=== PATIENT | male | born 1960 | race Caucasian/White ===

== ENCOUNTER 2023-08-28 12:58 | Emergency (ER) | payer OTHER, SELFPAY ==
[2023-08-28 13:09] VITALS: BP 135/91
[2023-08-28] MEDS: TORADOL 30 MG IM (16:32)
[2023-08-28 17:03] LABS: Urine Albumin Negative (Neg - Trace); Urine Bilirubin Negative (Negative); Urine Character Clear (Clear); Urine Color Yellow; Urine Glucose Negative (Negative); Urine Ketone Negative (Negative); Urine Leukocyte Negative (Negative); Urine Nitrite Negative (Negative); Urine Occult Blood Negative (Negative); Urine Urobilinogen Negative (Neg - 1+)
--- NOTE | 2023-08-28 17:10 | ED.GENMED ---
History of Present Illness
General
Chief Complaint: Musculo-Skeletal Complaint
Source: patient and spouse
Exam Limitations: none
Time Seen by Provider: 08/28/23 15:37
Nursing documentation reviewed up to this point in time: agreed with
Travel History
Have you had any contact with someone who has COVID-19?: No
Do you have any symptoms of coronavirus? Fever > 100 degrees, chills, cough, shortness of breath, sore throat, loss of taste or smell, muscle aches, or headache?: No
History of Present Illness
History of Present Illness:
63-year-old male with past medical history of GERD hypertension presenting to the emergency department today with concerns of right low back discomfort over the past 5 days that occurred abruptly when leaning over to feed one of his dogs. [place]
immediate sharp pain and then spasm-like pain thereafter was seen at an urgent care 4 days ago treated with muscle relaxer steroid and Tylenol he has not seen significant improvement since. Denies any change in bowel or bladder function denies
numbness or weakness denies urinary changes
Review of Systems
Review of Systems
Allergies reviewed?: Yes
All Other Systems: ROS reviewed and negative except as documented in HPI and ROS
Phy Exam
Physical Exam
Physical Exam:
GENERAL: Alert , in no apparent distress
EYE: pupils equal and reactive
NECK: Supple, no significant adenopathy.
ENT: o/p clr, mmm.
CARDIAC: Regular rate and rhythm .
LUNGS: Clear breath sounds bilaterally, no acute respiratory distress, no wheezes/rales/rhonchi
ABDOMEN: Soft, without focal tenderness, no r/g, no cvat
NEUROLOGICAL: Alert and oriented, no focal neuro deficits
SKIN: Warm and dry, skin intact.
MUSCULOSKELETAL: No edema, well perfused.
PSYCH: Normal and appropriate interaction.
Course
Orders/Labs/Results
Orders:
Orders
08/28/23 16:05
CT Abd/pel Without Iv Or Oral Urgent
Comment:
Reason For Exam: right flank pain
Ketorolac [Toradol] 30 mg IM NOW STA
08/28/23 16:43
Urinalysis Reflex To Culture Urgent
Date Specimen was Collected: 08/28/23
Time Specimen was Collected: 16:41
Vital Signs
Initial and Last Documented VS:
Initial Vital Signs
Temp Pulse Resp BP Pulse Ox
98 F 68 18 135/91 97
08/28/23 13:09 08/28/23 13:09 08/28/23 13:09 08/28/23 13:09 08/28/23 13:09
Last Documented Vital Signs
Temp Pulse Resp BP Pulse Ox
98 F 68 18 142/90 97
08/28/23 13:09 08/28/23 13:09 08/28/23 13:09 08/28/23 17:35 08/28/23 13:09
MDM/Problems Addressed
MDM/Problems Addressed:
63-year-old male presenting to the emergency department today with concerns of right low back discomfort that started abruptly 5 days ago when leaning over to feed his dog. Denies any numbness weakness change in bowel or bladder function. No red
flag symptoms of low back pain. Signs to be consistent with likely mechanical pain. Patient does have good range of motion and is moving freely concerning this there was concern of potential referred pain. CT scan was performed that did not show
any intra-abdominal pathology. It is most consistent with mechanical back discomfort. Patient was given an NSAID. Patient did have improvement of symptoms. Otherwise patient appears stable for discharge. Patient no distress will follow-up with
the back doctor return precautions given.
*Critical Care Note
Total Time (30-74mins, 75-104mins- exclusive of procedures): Not Applicable
ED Attending Note
-
Portions of this chart may have been created with voice recognition software.� Occasional wrong word or��sound alike� substitutions may have occurred due to the inherent limitations of voice recognition software.
Discharge Plan
Departure
Patient Disposition: Home (Routine Discharge)
Date of Disposition: 08/28/23
Time of Disposition: 18:07
Patient with high blood pressure during this ER visit?: No
Condition: Good
Covid-19: Not Applicable
Discharge Problem:
Back pain
Instructions: Back Pain
Prescriptions:
New
ibuprofen 600 mg tablet
600 mg PO TID 3 Days Qty: 9 0RF
Referrals:
Reji Arteaga MD [Active] - Follow up in 5-7 days
Harshil Peacock MD [Family Provider] -
Ryan Carreno MD [Non-Admitting Privileges] - Follow up in 5-7 days
Stand Alone Forms: Return to Work
Activity Restrictions/Additional Instructions:
You came to the emergency department today with concerns of low back pain.. Reassuring evaluation and normal CT scan. This is likely mechanical back pain. Please take the prescribed indication and follow closely with the back doctor for ongoing
symptoms. Return to the emergency department any worsening, new or concerning symptoms.
Interventions
Interventions:
*Risk Screen - Suicide Last Done: 08/28/23 13:09
*General Assessment Last Done: 08/28/23 13:09
*Neglect/Abuse Screening Last Done: 08/28/23 13:09
*Nursing Disposition Last Done: 08/28/23 17:35
ED-Musculoskeletal Assessment Last Done: 08/28/23 15:40
[2023-08-28 17:35] VITALS: BP 142/90
== END 2023-08-28 17:35 | disposition home or self-care (01) ==
LOC: EMR 12:58
PROVIDERS: Physician Assistant; EMERGENCY PHYSICIAN Emergency Medicine; FAMILY PHYSICIAN Family Medicine
DX: M54.50 Low back pain, unspecified (principal)
CPT/HCPCS: 99284; 96372; 74176; 81003

== ENCOUNTER 2024-04-04 10:03 | Emergency (ER) | payer OTHER, SELFPAY ==
[2024-04-04 10:09] VITALS: BP 158/97
--- NOTE | 2024-04-04 11:19 | ED.MUSCINJ ---
HPI-Injury
General
Chief Complaint: Musculo-Skeletal Complaint
Source: patient and spouse
Exam Limitations: none
Time Seen by Provider: 04/04/24 11:03
Nursing documentation reviewed up to this point in time: agreed with
History of Present Illness-Injury
Is this injury a work related problem?: No
Is pt an associate of [facility]/[place]?: No
Initial Injury comments:
64 yo male presents to the emergency department c/o right knee pain after twisting it yesterday. He is having increased swelling and pain. He has had knee pain for several weeks, but it got worse after he twisted it.
Past History
Past History
ED Past Medical History: HTN
ED Past Surgical History: Orthopedic (Left hand surgery by Dr. Ashby), Urological (Vasectomy) and Other (Hernia repair)
Social History
Tobacco: Non-smoker
Alcohol: None
Drug: None
Review of Systems
Review of Systems
Allergies reviewed?: Yes
All Other Systems: Not applicable
Constitutional: Reports no symptoms
EENT: Reports no symptoms
Respiratory: Reports no symptoms
Cardiac: Reports no symptoms
ABD/GI: Reports no symptoms
: Reports no symptoms
Musculoskeletal: Reports joint pain
Neurological: Reports no symptoms
Endocrine: Reports no symptoms
Hematologic/Lymphatic: Reports no symptoms
Psychiatric: Reports no symptoms
Musculoskeletal Injury Exam
Musculoskeletal Injury Exam
Right Knee:
Pain with Movement?: Mild
Tender to palpation?: None
Soft tissue swelling?: Mild
External deformity and angulation?: None
Joint effusion?: Mild
Contusion?: None
Hematoma-local bleeding into tissue?: None
Strain- Sprain- Tear (Connective tissue injury)?: None
Crepitus with movement?: No
Joint instability?: No
Malalignment/deformity?: No
Range of motion: Full
Distal skin color and temperature: normal-warm & good color
Capillary Refill: normal
Normal distal neurovascular exam?: Yes
Peripheral Pulses: femoral (left): 4+, femoral (right): 4+, popliteal (left): 4+, popliteal (right): 4+, posterior tibial (left): 4+, posterior tibial (right): 4+, dorsalis pedis (left): 4+ and dorsalis pedis (right): 4+
Phy Exam
Physical Exam
Physical Exam:
No acute distress, hypertensive
Injury Course
Orders/Labs/Results
Orders:
Orders
04/04/24 10:05
Knee, Right 4 or More Views [CR Knee- Right 4 Or More View*] Urgent
Comment:
Reason For Exam: pain
04/04/24 11:18
Knee Immobilizer Right-Treatme ONCE
Acetaminophen [Tylenol] 650 mg PO NOW STA
MDM/Problems Addressed
Differential Diagnosis Includes:
DVT, ligament tear, knee sprain
MDM/Problems Addressed:
64-year-old male with right knee sprain, no signs of ligament tear or significant effusion. Stable for discharge, knee immobilizer placed. Follow-up with Dr. Ashby.
Chronic conditions affecting care: HTN
*Radiology
Radiology exam reviewed: radiology read reviewed (Right knee x-ray shows small joint effusion, no fracture or dislocation)
*Pulse Oximetry
Patient hypoxic: no
*Medical Billing Specialist Interpretation
Rate: Medical Billing Specialist- N/A
*Critical Care Note
Total Time (30-74mins, 75-104mins- exclusive of procedures): Not Applicable
Patient Management
Social determinants of health affecting care: Living situation
Escalation/DeEscalation of care consider admission/obs:
admit not indicated
ED Attending Note
-
Portions of this chart may have been created with voice recognition software.� Occasional wrong word or��sound alike� substitutions may have occurred due to the inherent limitations of voice recognition software.
Discharge Plan
Departure
Patient Disposition: Home (Routine Discharge)
Date of Disposition: 04/04/24
Time of Disposition: 11:22
Patient with high blood pressure during this ER visit?: Yes
Condition: Good
Discharge Problem:
Right knee sprain
Instructions: Knee Sprain (DC), BLOOD PRESSURE
Prescriptions:
No Action
ibuprofen 600 mg tablet
600 mg PO TID 3 Days Qty: 9 0RF
Referrals:
Harshil Ashby MD [Active] - Call in 1-3 days for appt
Harshil Peacock MD [Family Provider] -
Stand Alone Forms: Return to Work
Interventions
Interventions:
*Risk Screen - Suicide Last Done: 04/04/24 10:09
*General Assessment Last Done: 04/04/24 10:59
*Neglect/Abuse Screening Last Done: 04/04/24 10:09
*ED COVID-19 Vaccine History Last Done: 04/04/24 10:59
ED-Musculoskeletal Assessment Last Done: 04/04/24 11:00
Discharge Date and Time
Print Language: TAJIK
[2024-04-04 11:40] VITALS: BP 151/88
[2024-04-04] MEDS: TYLENOL 650 MG PO (11:41)
== END 2024-04-04 11:42 | disposition home or self-care (01) ==
LOC: EMR 10:03
PROVIDERS: EMERGENCY PHYSICIAN Emergency Medicine; FAMILY PHYSICIAN Family Medicine
DX: S83.91XA Sprain of unspecified site of right knee, initial encounter (principal); M25.461 Effusion, right knee; X50.1XXA Overexertion from prolonged static or awkward postures, initial encounter; I10 Essential (primary) hypertension; K21.9 Gastro-esophageal reflux disease without esophagitis
CPT/HCPCS: 99283; 29505; 73564

== ENCOUNTER 2024-05-05 07:25 | Emergency (ER) | payer OTHER, SELFPAY ==
[2024-05-05 07:26] VITALS: BP 165/110
[2024-05-05 07:45] VITALS: BMI 27.3
--- NOTE | 2024-05-05 07:47 | ED.GENMED ---
History of Present Illness
General
Chief Complaint: Back Pain
Source: patient
Time Seen by Provider: 05/05/24 07:30
History of Present Illness
History of Present Illness:
64yoM with a history of hypertension and GERD presenting with his for evaluation of low back pain. He was in the ED for several hours 2 days ago with his . He started to feel a 'twinge' in his left lower back while sitting in the chair. He
started having worsening pain yesterday while at work. 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 Pain is worse with movement. Pain is located in the left lower back and radiates down into the buttock and the anterior
thigh. He has taken Tylenol without much improvement. He denies any fevers, chills, abdominal pain, dysuria, incontinence, saddle anesthesia. No paresthesias or weakness of the lower extremities. No prior history of back surgeries. He was seen in
the ED on 08/28/23 for back pain and pain improved with NSAIDs.
Past History
Past History
ED Past Medical History: HTN
ED Past Surgical History: Orthopedic (Left hand surgery by Dr. Ashby), Urological (Vasectomy) and Other (Hernia repair)
Social History
Tobacco: Non-smoker
Alcohol: None
Drug: None
Phy Exam
General Physical Exam
General Presentation: well appearing and no apparent distress
General age: appears stated age
General Skin: warm and dry
General Habitus: normal
General Mental: alert
ENT Exam
ENT Exam: normocephalic
Neurological Exam
Neurological Exam: alert and other (5/5 strength and gross sensation intact in bilateral lower extremities. 2+ patellar reflexes bilaterally. )
[place] Coma Scale
Eye Opening: Spontaneous
Verbal Response: Oriented
Motor Response: Obeys Commands
GCS Total Score: 15
Musculoskeletal Exam
Musculoskeletal Exam: other (No tenderness to palpation of lumbar region. Pain elicited with trunk flexion. No skin changes. )
Skin Exam
Skin Exam: normal color and warm/dry
Psychiatric Exam
Psychiatric Exam: normal mood/affect
Course
Orders/Labs/Results
Orders:
Orders
05/05/24 07:46
Ketorolac [Toradol] 30 mg IM NOW STA
Lidocaine [Lidocaine 4% Patch] 1 patch TOPICAL ONCE ONE
Apply Lidocaine patch(s) to:: L lower back
CR Lumbar Spine Comp Min 4 Vw* Urgent
Comment:
Reason For Exam: Low back pain
Vital Signs
Initial and Last Documented VS:
Initial Vital Signs
Temp Pulse Resp BP Pulse Ox
98.8 F 80 16 165/110 98
05/05/24 07:26 05/05/24 07:26 05/05/24 07:26 05/05/24 07:26 05/05/24 07:26
Last Documented Vital Signs
Temp Pulse Resp BP Pulse Ox
98.8 F 80 16 143/105 98
05/05/24 07:26 05/05/24 07:26 05/05/24 07:26 05/05/24 09:35 05/05/24 07:26
MDM/Problems Addressed
Differential Diagnosis Includes:
64yoM here with L lower back pain x 2 days. Started after sitting in a chair for several hours. Worse with movement. No red flags in history including no fevers, saddle anesthesia, incontinence. He is hypertensive with otherwise normal vital signs.
Back pain elicited with trunk flexion. Lower extremities are neurovascularly intact. Differential diagnosis includes but is not limited to: sciatica, lumbar radiculopathy, strain
Initial ED plan: Check lumbar x-rays. IM Toradol and lidocaine patch for pain.
*Critical Care Note
Total Time (30-74mins, 75-104mins- exclusive of procedures): Not Applicable
Update Note
Update Note:
Imaging shows degenerative changes without acute osseous abnormality. Pain improved with Toradol. No indication for admission. Will trial course of prednisone. He also is requesting a prescription for ibuprofen which was provided. Supportive care
discussed including heat and topical lidocaine patches. Advised f/u with PCP and orthopedics. He was also given contact information for pain management. ED return precautions discussed. He was discharged in stable condition.
ED Attending Note
-
Portions of this chart may have been created with voice recognition software.� Occasional wrong word or��sound alike� substitutions may have occurred due to the inherent limitations of voice recognition software.
Discharge Plan
Departure
Patient Disposition: Home (Routine Discharge)
Date of Disposition: 05/05/24
Time of Disposition: 09:27
Patient with high blood pressure during this ER visit?: Yes
Discharge Problem:
Low back pain radiating to left leg
Instructions: Low Back Pain (DC)
Prescriptions:
New
prednisone 20 mg tablet
40 mg PO DAILY 5 Days Qty: 10 0RF
ibuprofen 600 mg tablet
600 mg PO Q6H PRN (Reason: Pain) Qty: 30 0RF
No Action
ibuprofen 600 mg tablet
600 mg PO TID 3 Days Qty: 9 0RF
Referrals:
Reji Arteaga MD [Active] -
Harshil Peacock MD [Family Provider] -
Cisco Pacheco MD [Active] -
Stand Alone Forms: Return to Work
Activity Restrictions/Additional Instructions:
Take prednisone as prescribed. Apply heat to affected area. Take Tylenol 650mg and ibuprofen 600mg every 6 hours as needed for pain. Use lidocaine patches daily (12 hours on, 12 hours off).
Please follow-up with your family doctor and orthopedics. Return to the ER with any new or worsening symptoms.
Interventions
Interventions:
*Risk Screen - Suicide Last Done: 05/05/24 07:26
*General Assessment Last Done: 05/05/24 07:26
*Neglect/Abuse Screening Last Done: 05/05/24 07:26
ED- Fall Risk Assessment Last Done: 05/05/24 08:07
*ED COVID-19 Vaccine History Last Done: 05/05/24 07:26
*Nursing Disposition Last Done: 05/05/24 09:45
ED-Musculoskeletal Assessment Last Done: 05/05/24 07:45
Discharge Date and Time
Discharge Date/Time: 05/05/24 09:45
Print Language: BRAZILIAN
[2024-05-05] MEDS: TORADOL 30 MG IM (08:00)
[2024-05-05] MEDS: LIDOCAINE 4% PATCH 1 PATCH TOPICAL (08:00)
[2024-05-05 08:45] VITALS: BP 171/119
[2024-05-05 09:35] VITALS: BP 143/105
== END 2024-05-05 09:45 | disposition home or self-care (01) ==
LOC: EMR 07:25
PROVIDERS: EMERGENCY PHYSICIAN Emergency Medicine; FAMILY PHYSICIAN Family Medicine
DX: M54.50 Low back pain, unspecified (principal); M79.605 Pain in left leg; I10 Essential (primary) hypertension; K21.9 Gastro-esophageal reflux disease without esophagitis
CPT/HCPCS: 96372; 99284; 72110

== ENCOUNTER 2024-05-12 07:23 | Emergency (ER) | payer OTHER, SELFPAY ==
[2024-05-12 07:24] VITALS: BP 170/106
[2024-05-12 08:02] VITALS: BMI 27.6
[2024-05-12 08:31] VITALS: BP 164/110
--- NOTE | 2024-05-12 08:31 | ED.GENMED ---
History of Present Illness
General
Chief Complaint: Back Pain
Source: patient
Exam Limitations: none
Time Seen by Provider: 05/12/24 08:11
Nursing documentation reviewed up to this point in time: agreed with
History of Present Illness
History of Present Illness:
Patient is a 64-year-old male who presents to the ER complaining of low back pain which radiates into his left buttock and down his left leg he complains of sharp stabbing pain behind his kneecap. He was seen here a week ago onNov 7. At that time
he had a lumbar spine and was given a shot of Toradol and lidocaine patch. He was sent home with a prescription for steroids and ibuprofen.
Since then pain has gotten worse. He reports the same type of pain but he is now very uncomfortable and cannot even sit. 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
He denies any swelling in his legs. Denies any fever chills. Denies any weakness in his legs. Denies any numbness tingling. Denies any incontinence of bowel or bladder.
Past History
Past History
ED Past Medical History: HTN
ED Past Surgical History: Orthopedic (Left hand surgery by Dr. Ashby), Urological (Vasectomy) and Other (Hernia repair)
Social History
Tobacco: Non-smoker
Alcohol: None
Drug: None
Review of Systems
Review of Systems
Allergies reviewed?: Yes
All Other Systems: ROS reviewed and negative except as documented in HPI and ROS
Constitutional: Reports no symptoms
: Denies incontinence
Musculoskeletal: Reports back pain (Radiating to left leg denies any leg swelling)
Skin: Reports no symptoms
Neurological: Reports other (Denies any numbness tingling weakness to extremities); Denies numbness
Psychiatric: Reports no symptoms
Phy Exam
General Physical Exam
General Presentation: no apparent distress
General age: appears stated age
General Skin: warm and dry
General Habitus: normal
General Mental: alert
General Hydration: appears well hydrated
Neurological Exam
Neurological Exam: alert, oriented x3, normal reflexs and other (Intact sensation to bilateral lower extremities normal dorsiflexion normal plantarflexion able to heel toe walk no deficit in strength normal patellar reflexes bilaterally)
Musculoskeletal Exam
Musculoskeletal Exam: full ROM
Skin Exam
Skin Exam: normal color and warm/dry
Psychiatric Exam
Psychiatric Exam: normal mood/affect
Course
Orders/Labs/Results
Orders:
Orders
05/12/24 08:35
Dexamethasone Sod Phosphate [Decadron] 10 mg IM NOW STA
HYDROmorphone [Dilaudid] 1 mg IM NOW STA
05/12/24 08:36
Lidocaine [Lidocaine 4% Patch] 1 patch TOPICAL NOW STA
Apply Lidocaine patch(s) to:: left lower back
Vital Signs
Initial and Last Documented VS:
Initial Vital Signs
Temp Pulse Resp BP Pulse Ox
98.5 F 95 16 170/106 100
05/12/24 07:24 05/12/24 07:24 05/12/24 07:24 05/12/24 07:24 05/12/24 07:24
Last Documented Vital Signs
Temp Pulse Resp BP Pulse Ox
98.5 F 77 14 121/77 100
05/12/24 07:24 05/12/24 09:35 05/12/24 09:35 05/12/24 09:35 05/12/24 09:35
Crude Unit Operator consulted with Physician
Crude Unit Operator consulted with physician?: Yes
Name of Physician Consulted: Dr Payne
MDM/Problems Addressed
Differential Diagnosis Includes:
Not limited to radicular pain sciatica
MDM/Problems Addressed:
64 male presents to the ER for evaluation of low back pain rating to left leg. Patient was seen here 1 week ago. He was diagnosed with radicular pain and he completed steroids and was taken ibuprofen. He also saw his family doctor and was taken
muscle relaxers but continues to complain of pain to the left leg. He reports he is unable to sit because of discomfort. He has no concerning symptoms. He denies any saddle paresthesia denies any bowel or bladder incontinence denies any weakness
in lower extremities. He is able to heel toe walk normally with normal reflexes normal strength and normal neurological exam. Patient was given IM Dilaudid as well as IM Decadron feeling improvement. I did speak with his family physician
Ayush. Patient will need precertification for MRI. Likely with sciatica radicular pain and likely will need outpatient MRI. Did review with patient that goal for today is to improve his symptoms we will restart on a higher dose steroid small
course of tramadol until he is able to see his family doctor. I recommend that he and his call the office today
*Pulse Oximetry
Patient hypoxic: no
*Critical Care Note
Total Time (30-74mins, 75-104mins- exclusive of procedures): Not Applicable
ED Attending Note
-
Portions of this chart may have been created with voice recognition software.� Occasional wrong word or��sound alike� substitutions may have occurred due to the inherent limitations of voice recognition software.
Discharge Plan
Departure
Patient Disposition: Home (Routine Discharge)
Date of Disposition: 05/12/24
Time of Disposition: 10:17
Patient with high blood pressure during this ER visit?: Yes
Condition: Fair
Covid-19: Not Applicable
Discharge Problem:
Sciatica, Low back pain
Instructions: Low Back Pain (DC), Sciatica (DC), Back Exercises, BLOOD PRESSURE
Prescriptions:
New
prednisone 10 mg Tablet
See Rx Instructions .ROUTE .COMPLEX Qty: 45 0RF
Rx Instructions:
Take By Mouth:
50 mg daily x3 days, 40 mg daily x3 days,
30 mg daily x3 days, 20 mg daily x3 days,
10 mg daily x3 days
tramadol 50 mg tablet
50 mg PO Q8H PRN (Reason: Pain) Qty: 10 0RF
lidocaine 5 % adhesive patch,medicated
1 patch topical DAILY Qty: 15 0RF
Rx Instructions:
remove after 12 hrs
Referrals:
Harshil Peacock MD [Family Provider] -
Activity Restrictions/Additional Instructions:
As discussed prescriptions were sent to your pharmacy. A prescription for long taper of prednisone(steroid) was sent to your pharmacy along with a prescription for pain medication,(tramadol) this medication is a narcotic take only as directed. In
addition a prescription for lidocaine patch was sent to your pharmacy.
Please call your family doctor today to make an appointment as soon as possible for further reevaluation and discussion about MRI. Avoid prolonged positions you may gently walk. He may alternate between ice and heat.
Return if any worsening of symptoms including leg weakness loss of bowel or bladder or any further concerns.
Interventions
Interventions:
*Risk Screen - Suicide Last Done: 05/12/24 08:02
*General Assessment Last Done: 05/12/24 08:02
*Neglect/Abuse Screening Last Done: 05/12/24 08:02
ED- Fall Risk Assessment Last Done: 05/12/24 10:25
*ED COVID-19 Vaccine History Last Done: 05/12/24 08:02
*Nursing Disposition Last Done: 05/12/24 10:25
ED-Musculoskeletal Assessment Last Done: 05/12/24 08:02
Discharge Date and Time
Discharge Date/Time: 05/12/24 10:25
Print Language: LAO
[2024-05-12] MEDS: DECADRON 10 MG IM (08:57)
[2024-05-12] MEDS: DILAUDID 1 MG IM (08:57)
[2024-05-12] MEDS: LIDOCAINE 4% PATCH 1 PATCH TOPICAL (08:57)
[2024-05-12 09:35] VITALS: BP 121/77
--- NOTE | 2024-05-12 09:36 | EDRN ---
Sal Mercedes NP in room w/ pt.
== END 2024-05-12 10:25 | disposition home or self-care (01) ==
LOC: EMR 07:23
PROVIDERS: EMERGENCY PHYSICIAN Emergency Medicine; FAMILY PHYSICIAN Family Medicine
DX: M54.42 Lumbago with sciatica, left side (principal); I10 Essential (primary) hypertension
CPT/HCPCS: 96372; 99284